=== PATIENT | female | born 1965 | race Asian ===

== ENCOUNTER 2023-04-08 22:01 | Emergency (ER) | payer OTHER ==
[~2023-04-08] VITALS: Ht 160 cm; Wt 56.2 kg
[2023-04-08 22:41] VITALS: BP_SYST 126; PULSE 74; RESP 16; TEMP 98.6; O2SAT 98
[2023-04-08] MEDS ORDERED: ZAN4 PO (23:50)
[2023-04-08 23:59] VITALS: BP_SYST 126; PULSE 74; RESP 16; TEMP 98.6; O2SAT 98
== END 2023-04-08 23:58 | disposition home or self-care (01) ==
LOC: SED 22:01
DX: S16.1XXA Strain of muscle, fascia and tendon at neck level, initial encounter (principal); Z79.899 Other long term (current) drug therapy; V89.2XXA Person injured in unspecified motor-vehicle accident, traffic, initial encounter; Y93.89 Activity, other specified; Y92.89 Other specified places as the place of occurrence of the external cause; Y99.8 Other external cause status
CPT/HCPCS: 72125-TC; 99284